=== PATIENT | male | born 1950 | race Caucasian/White ===

== ENCOUNTER 2025-03-10 07:47 | Outpatient (CLI) | payer OTHER, SELFPAY | END 2025-03-10 07:48 | disposition home or self-care (01) | LOC: NFLDREF 03-13 08:27 | PROVIDERS: PCP Family Medicine; Referring Provider Family Medicine; Visit Provider Family Medicine | DX: E78.5 Hyperlipidemia, unspecified (principal); E03.9 Hypothyroidism, unspecified; Z12.5 Encounter for screening for malignant neoplasm of prostate | CPT/HCPCS: 80053; 80061; 84443; G0103 ==